=== PATIENT | male | born 1985 | race Two or more races ===

== ENCOUNTER 2019-04-11 17:05 | Emergency (ER) | payer SELFPAY ==
[~2019-04-11] VITALS: Ht 170.2 cm; Wt 82.0 kg
[2019-04-11 17:55] LABS: CHLORIDE 106 mEq/L (98-107)
[2019-04-11 17:59] LABS: ETHANOL BLOOD < 10 mg/dL
[2019-04-11 18:36] LABS: *AMPHETAMINES SCREEN URINE PRESUMTIVE POSITIVE (NEGATIVE); *BARBITURATES SCREEN URINE NEGATIVE (NEGATIVE); *BENZODIAZEPINES SCREEN URINE NEGATIVE (NEGATIVE); *COCAINE SCREEN URINE NEGATIVE (NEGATIVE)
[2019-04-11 18:37] LABS: CANNABINOID URINE SCREEN PRESUMTIVE POSITIVE (NEGATIVE); METHADONE URINE SCREEN NEGATIVE (NEGATIVE); OPIATES URINE SCREEN NEGATIVE (NEGATIVE); PHENCYCLIDINE URINE SCREEN PRESUMTIVE POSITIVE (NEGATIVE)
[2019-04-11 20:13] LABS: BASOPHILS % 0.6 % (0.0-2.0); EOSINOPHILS % 0.4 % (0.0-5.0); HEMATOCRIT. 44.9 % (42.0-52.0); LYMPHOCYTES % 14.5 % (20.0-50.0); MEAN CORPUSCULAR HEMOGLOBIN 30.9 pg (28.0-32.0); MEAN CORPUSCULAR VOLUME 92.3 fL (80.0-94.0); NEUTROPHILS % 76.5 % (40.0-76.0); PLATELET 223 x1000/uL (130-400); RED BLOOD CELL COUNT 4.86 mill/uL (4.7-6.1); RED CELL DISTRIBUTION WIDTH 13.3 % (11.6-14.6)
[2019-04-12 14:20] VITALS: BP 118/62
== END 2019-04-12 16:05 | disposition home or self-care (01) ==
LOC: ER 20:13
DX: T14.91XA Suicide attempt, initial encounter (principal); T65.92XA Toxic effect of unspecified substance, intentional self-harm, initial encounter; F19.10 Other psychoactive substance abuse, uncomplicated; J45.909 Unspecified asthma, uncomplicated; Y92.9 Unspecified place or not applicable; Y93.89 Activity, other specified
CPT/HCPCS: 36415; 80305; 80307; 80320; 80329; 93005; 99284; G0480

== ENCOUNTER 2020-06-18 05:59 | Emergency (ER) | payer MEDICAID ==
[~2020-06-18] VITALS: Ht 170.2 cm; Wt 78.0 kg
[2020-06-18] MEDS ORDERED: MORPHINE SULFATE 4 MG/ML CPJ (NOT FOR IM USE) IV STA (06:31)
[2020-06-18] MEDS ORDERED: ONDANSETRON HCL 4MG/2ML INJ IV STA (06:31)
[2020-06-18 09:10] VITALS: BP 132/80
== END 2020-06-18 09:28 | disposition home or self-care (01) ==
LOC: ER 06:07
DX: S71.142A Puncture wound with foreign body, left thigh, initial encounter (principal); X93.XXXA Assault by handgun discharge, initial encounter; Y93.89 Activity, other specified; Y92.488 Other paved roadways as the place of occurrence of the external cause
CPT/HCPCS: 73590; 93005; 96374; 96375; 99284; J2270; J2405